=== PATIENT | female | born 2005 | race Caucasian/White ===

== ENCOUNTER 2025-03-20 08:59 | Observation (INO) ==
--- NOTE | 2025-03-20 09:09 | Emergency Department Note ---
History of Present Illness General Chief complaint: Anxiety Stated complaint: ANXIETY/THROWING UP Time Seen by Provider: 03/20/25 09:09 History of Present Illness Maximum Pain Intensity: 7 This is a 19-year-old female who presents to the emergency department via private vehicle with complaints of "anxiety". Patient has a history of anxiety. She was on Lexapro about a year ago but notes she was inconsistent with taking the medication and noticed very little difference. She currently is not taking any medication. Over the past 2 to 3 days she notes worsening anxiety which she attributes secondary to moving back to college here at [employer] [facility]. She denies any SI or HI. She did follow-up with [facility] and was prescribed hydroxyzine but has not taken that noting the nausea that she has this morning. She also notes generalized abdominal pain. She states that the nausea and abdominal pain is consistent with her anxiety. The patient denies any pertinent past medical history. She notes history of foot surgery. No known drug allergies. She notes mild vomiting, mostly nausea. She denies any alcohol use. No drug use. She notes that she does smoke and vape. She was referred by [facility] for fluids and potential initiation of medication. Home Medications Medication Instructions Recorded Confirmed Type hydroxyzine HCl 25 mg tablet 25 mg PO DAILY PRN Anxiety 03/20/25 03/20/25 History Allergies Allergy/AdvReac Type Severity Reaction Status Date / Time No Known Allergies Allergy Unverified 03/20/25 10:39 Past Med/Surg History Problem List (Updated 03/20/25 @ 14:53 by Fran Adkins PA-C) Nausea & vomiting (Acute) Anxiety (Acute) Social History Smoking Status: Current every day smoker Tobacco Type: Cigarettes and E-cigarettes / Vaping Preferred Language: Khmer Feels Safe at Home: Yes Review of Systems A total of 10 systems reviewed and were otherwise negative Physical Exam Vital Signs Vital Signs - 24 hr 03/20/25 09:03 03/20/25 09:33 03/20/25 09:33 Temperature 36 C L Temperature Source Temporal Artery Scan Pulse Rate 64 Pulse Rate [Apical] Pulse Rhythm [Apical] Respiratory Rate 18 Respiratory Effort / Characteristics Non-Labored Respiratory Depth Normal Respiratory Pattern Regular Blood Pressure 111/67 Blood Pressure [Right Arm] Blood Pressure Mean 81 Blood Pressure Mean [Right Arm] Blood Pressure Position [Right Arm] Pulse Oximetry 100 100 100 Oxygen Delivery Method Room Air Room Air Room Air Sepsis Recent Fever Within 48 Hours No Sepsis New/Unexplained Change in Mental Status N/A Sepsis Action Taken by Nursing No Action Required 03/20/25 10:46 03/20/25 11:00 03/20/25 13:19 Temperature Temperature Source Pulse Rate 93 H Pulse Rate [Apical] 64 67 Pulse Rhythm [Apical] Regular Respiratory Rate 20 16 Respiratory Effort / Characteristics Non-Labored Spontaneous Non-Labored Spontaneous Respiratory Depth Normal Normal Respiratory Pattern Blood Pressure Blood Pressure [Right Arm] 119/77 120/76 Blood Pressure Mean Blood Pressure Mean [Right Arm] 91 90 Blood Pressure Position [Right Arm] Semi-fowlers Pulse Oximetry 100 95 Oxygen Delivery Method Room Air Room Air Sepsis Recent Fever Within 48 Hours Sepsis New/Unexplained Change in Mental Status Sepsis Action Taken by Nursing VITAL SIGNS - Vital signs and nursing notes were reviewed. Stable and afebrile. GENERAL -19-year-old female appearing her stated age who is in no acute distress. Communicates well with provider and answers questions appropriately. SKIN - Without rashes. No meningeal or petechial rash. HEAD - NC/AT. EYES - PERRL with EOMI bilaterally. Sclera anicteric. EARS - No deformities of external structures noted on gross examination bilaterally. NOSE - Midline and without cyanosis. No epistaxis or purulent drainage noted. MOUTH/OROPHARYNX - Without perioral cyanosis. NECK - Neck with FROM. No nuchal rigidity. LUNGS - CTA CARDIAC - RRR ABDOMEN - Abdominal contour normal without pulsations or visible masses. BS normoactive all four quadrants. No tenderness, palpable masses, hepatosplenomegaly, or ascites noted. EXTREMITIES - No clubbing or peripheral cyanosis. +5/5 strength noted in UE/LE bilaterally. NEUROLOGIC - Cranial nerves II through XII grossly intact. PSYCH - alert, oriented and pleasant on exam Course Administered Medications Discontinued Medications Sodium Chloride (Nss) 1,000 mls @ 999 mls/hr IV .Q1H1M ONE Stop: 03/20/25 10:15 Last Infusion: 03/20/25 12:03 Dose: Infused Documented By: Admin: 03/20/25 09:24 Dose: 999 mls/hr Documented By: RELL Potassium Chloride (K [place] / Wtr) 10 meq in 100 mls @ 100 mls/hr IV ONE ONE Stop: 03/20/25 11:26 Last Infusion: 03/20/25 12:02 Dose: Infused Documented By: Admin: 03/20/25 10:57 Dose: 100 mls/hr Documented By: CLARISSA Sodium Chloride (Nss) 500 mls @ 500 mls/hr IV .Q1H ONE Stop: 03/20/25 11:52 Last Infusion: 03/20/25 12:03 Dose: Infused Documented By: Admin: 03/20/25 10:57 Dose: 500 mls/hr Documented By: CLARISSA Lorazepam (Lorazepam 1 Mg/1 Ml Syr Ed Inj Use) 0.25 mg IV ONE STA Stop: 03/20/25 10:28 Last Admin: 03/20/25 10:56 Dose: 0.25 mg Documented By: CLARISSA Metoclopramide HCl (Metoclopramide Hcl Inj 5 Mg/Ml 2 Ml Vial) 5 mg IV ONE ONE Stop: 03/20/25 13:07 Last Admin: 03/20/25 13:09 Dose: 5 mg Documented By: MAIDA Ondansetron HCl (Ondansetron Inj 2 Mg/Ml 2 Ml Vial) 4 mg IV NOW STA Stop: 03/20/25 09:16 Last Admin: 03/20/25 09:29 Dose: 4 mg Documented By: RELL Medical Decision Making Laboratory Data 03/20/25 09:23 03/20/25 09:23 Lab Results 03/20/25 03/20/25 Range/Units 09:23 10:34 WBC 8.94 (4.8-10.8) K/ul RBC 4.36 (4.20-5.40) M/uL Hgb 13.7 (12.0-16.0) g/dl Hct 38.9 (37.0-47.0) % MCV 89.2 (80.0-100.0) fL MCH 31.4 (25.0-34.0) pg MCHC 35.2 (32.0-36.0) g/dL RDW Std Deviation 43.4 (36.4-46.3) fL RDW Coeff of Gregg 13.1 (11.5-14.5) % Plt Count 226 (130-400) K/uL MPV 10.3 (9.4-12.4) fL Immature Gran % (Auto) 0.2 % Neut % (Auto) 69.1 % Lymph % (Auto) 25.2 % [place] % (Auto) 4.8 % Eos % (Auto) 0.3 % Baso % (Auto) 0.4 % Neut # (Auto) 6.17 (1.40-6.50) K/uL Lymph # (Auto) 2.25 (1.20-3.40) K/uL [place] # (Auto) 0.43 (0.11-0.59) K/uL Eos # (Auto) 0.03 (0.00-0.50) K/uL Baso # (Auto) 0.04 (0.00-0.20) K/uL Immature Gran # (Auto) 0.02 (0.01-0.20) K/uL Sodium 138 (136-145) mmol/L Potassium 3.1 L (3.5-5.1) mmol/L Chloride 105 (98-107) mmol/L Carbon Dioxide 21 (21-32) mmol/L Anion Gap 12 H (3-11) BUN 11 (6-23) mg/dl Creatinine 0.93 (0.6-1.2) mg/dl Est Cr Clr Drug Dosing 84.0 ml/min eGFR 90.80 BUN/Creatinine Ratio 11.8 (10-20) Glucose 99 (70-99(Fasting)) mg/dl Calcium 9.8 (8.6-10.3) mg/dl Magnesium 2.2 (1.7-2.4) mg/dl Total Bilirubin 1.2 H (0.2-1.0) mg/dl AST 15 (13-39) U/L ALT 9 (7-52) U/L Alkaline Phosphatase 69 (34-104) U/L Total Protein 7.9 (6.0-8.3) gm/dl Albumin 4.5 (3.4-5.0) gm/dl Globulin 3.4 (2.5-4.0) gm/dl Albumin/Globulin Ratio 1.3 (0.9-2) TSH 0.731 (0.300-4.500) uIu/ml HCG, Qual Negative (Negative) Urine Color Yellow Urine Appearance Clear (Clear) Urine pH 6.5 (4.5-7.5) Ur Specific [place] 1.009 (1.000-1.030) Urine Protein Negative (Negative) Urine Glucose (UA) Negative (Negative) Urine Ketones 1+ H (Negative) Urine Blood Negative (Negative) Urine Nitrite Negative (Negative) Urine Bilirubin Negative (Negative) Urine Urobilinogen Negative (Negative) Ur Leukocyte Esterase Negative (Negative) Urine Comment MDM Narrative Patient was seen and evaluated as above in room B03b. Review was performed of triage nursing notes and vital signs. I did review pertinent previous visits and patient history. After obtaining a thorough history and physical examination the above work up was performed. EKG was obtained. Per my interpretation this reveals sinus bradycardia at a rate of 51 bpm. QTc 400. QRS 76. No ST elevation on this rhythm tracing Options of care were discussed with the patient. IV access was established. Labs were drawn. There is no leukocytosis or concerning anemia. Hypokalemia 3.1 which we repleted intravenously. No evidence of kidney or liver failure although will note T. bili 1.2, similar to previous. hCG negative. Urinalysis does not suggest infection. She was medicated here with IV fluids. I had a thorough discussion with the patient regarding benefit versus risk of CT scan of the abdomen/pelvis. The patient feels that her discomfort is consistent with her previous anxiety and does not wish to undergo imaging. Patient aware of the reasoning behind considering imaging. I did order Ativan which was minimally helpful. P.o. fluid trial initiated and patient did vomit. IV Reglan ordered. At this time consideration was made for further evaluation and management in the inpatient setting. Case discussed with the hospitalist service. Please refer to further documentation regarding her stay. In the evaluation and treatment of this patient the following differential diagnoses were entertained: Arrhythmia, electrolyte disturbance, anxiety, UTI, pyelonephritis, among others Impression & Plan Nausea & vomiting, Anxiety Discharge Plan Visit Data Chief Complaint: Anxiety Stated Complaint: ANXIETY/THROWING UP ED Provider: Ibeth Ambriz ED Midlevel Provider: Fran Adkins Discharge Problem: Nausea & vomiting, Anxiety Patient Disposition: Admitted As Inpatient Condition: Good Discharge Instructions Interventions: ED Discharge Assessment Last Done: 03/20/25 14:39
[2025-03-20] MEDS: SODIUM CHLORIDE 0.9% 1,000 ML IV ONE (09:24)
[2025-03-20] MEDS: ONDANSETRON INJ 2 MG/ML 2 ML VIAL IV STA (09:29)
[2025-03-20 09:53] LABS: Hematocrit (blood only) 38.9 % (37.0-47.0); Hemoglobin 13.7 g/dl (12.0-16.0); Immature Granulocytes # (auto) 0.02 K/uL (0.01-0.20); Immature Granulocytes % (auto) 0.2 %; Mean Corpuscular Hemoglobin 31.4 pg (25.0-34.0); Mean Corpuscular Volume 89.2 fL (80.0-100.0); Platelet Count 226 K/uL (130-400); RDW Standard Deviation 43.4 fL (36.4-46.3); Red Blood Count 4.36 M/uL (4.20-5.40); White Blood Count 8.94 K/ul (4.8-10.8)
[2025-03-20 10:12] LABS: Alanine Aminotransferase 9.0 U/L (7-52); Albumin Globulin Ratio 1.3 (0.9-2); Alkaline Phosphatase 69.0 U/L (34-104); Anion Gap 12.0 (3-11); Bilirubin,Total 1.2 mg/dl (0.2-1.0); Blood Urea Nitrogen 11.0 mg/dl (6-23); Calcium 9.8 mg/dl (8.6-10.3); Carbon Dioxide 21.0 mmol/L (21-32); Chloride 105.0 mmol/L (98-107); Creatinine Clr Calc Pharmacy 84.0 ml/min; Globulin 3.4 gm/dl (2.5-4.0); Glucose 99.0 mg/dl (70-99(Fasting)); Potassium 3.1 mmol/L (3.5-5.1); Sodium 138.0 mmol/L (136-145); Total Protein 7.9 gm/dl (6.0-8.3)
[2025-03-20 10:26] LABS: Thyroid Stimulating Hormone 0.731 uIu/ml (0.300-4.500)
[2025-03-20 10:35] LABS: Pregnancy Test, Serum Negative (Negative)
[2025-03-20] MEDS: LORazepam 1 MG/1 ML SYR ED Inj Use IV STA (10:56)
[2025-03-20] MEDS: POTASSIUM CHLORIDE / WTR 10 MEQ/100 ML PLCT IV ONE (10:57)
[2025-03-20] MEDS: SODIUM CHLORIDE 0.9% 500 ML IV ONE (10:57)
[2025-03-20 10:59] LABS: Appearance Urine Clear (Clear); Glucose Urine UA Negative (Negative)
[2025-03-20] MEDS: METOCLOPRAMIDE HCL INJ 5 MG/ML 2 ML VIAL IV ONE (13:09)
--- NOTE | 2025-03-20 13:28 | History & Physical Report ---
Date of Service March 20, 2025 Assessment & Plan (1) Anxiety: (2) Nausea & vomiting: Plan 19-year-old female anxiety smoking /Vaping who was referred by [facility] with complaints of severe anxiety. Endorses associated generalized abdominal cramping nausea and vomiting. She states this is normal for her whenever she feels severely anxious and it resolves once her anxiety subsides. She feels moving back to [place] has provoked her anxiety attack. She is declining a CT scan in the ED for this reason. Also endorses diarrhea however states this is chronic and unchanged. Also endorses nonvertiginous lightheadedness feels this is because she has not eaten. No fevers chills blood in stool shortness of breath chest pain recent illness sick contacts travel or suspicious foods. She was on lexapro in the past and admits to not always being compliant as she felt it did not work very well. Currently Not on any medications aside from hydroxyzine recently prescribed at [facility] but she has not taken this secondary to her nausea and vomiting. Denies SI HI delusions or hallucinations. Denies EtOH or illicit drug use. She also mentions severe menorrhagia recently no other symptoms. Severe anxiety attack Supportive care Hydroxyzine And Ativan as needed Psychiatry consultation. May consider placing back on SSRI. Will likely benefit from being established with psychiatrist here after having moved back CM consulted to evaluate for any socioeconomic challenges Nausea vomiting abdominal pain reportedly attributable to anxiety Declining CT scan at this time. Reassess based on clinical course. test negative. TFTs WNL. UA unrevealing. Supportive care Antiemetics IV fluids Diet as tolerated UDS Hypokalemia Replete as needed Monitor magnesium Smoking/vaping Cessation counseling Recent severe menorrhagia Considering above complaints, will consult gynecology. 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 Endorses associated abdominal cramping nausea and vomiting. She states this is normal for her whenever she feels severely anxious and it resolves once her anxiety subsides. She feels moving back to [place] has provoked her anxiety attack. She is declining a CT scan in the ED for this reason. No fevers chills diarrhea blood in stool lightheadedness shortness of breath sick contacts travel or suspicious foods. She was on lexapro in the past and admits to not always being compliant as she felt it did not work very well. Currently Not on any medications aside from hydroxyzine recently prescribed at [facility] but she has not taken this secondary to her nausea and vomiting. Denies SI HI delusions or hallucinations. Denies EtOH or illicit drug use Allergies Allergy/AdvReac Type Severity Reaction Status Date / Time No Known Allergies Allergy Unverified 03/20/25 10:39 Home Medications Medication Instructions Recorded Confirmed Type hydroxyzine HCl 25 mg tablet 25 mg PO DAILY PRN Anxiety 03/20/25 03/20/25 History Past Med/Surg History Problem List (Updated 03/20/25 @ 13:53 by Sommer Olivarez MD) Nausea & vomiting Anxiety Social History Smoking Status: Current every day smoker Tobacco Type: Cigarettes and E-cigarettes / Vaping Preferred Language: Welsh Feels Safe at Home: Yes Review of Systems Review of Systems: Negative except as in HPI Physical Exam Physical Exam: awake alert NAD SKIN - Without rashes. No meningeal or petechial rash. HEAD - NC/AT. EYES - PERRL with EOMI bilaterally. Sclera anicteric. EARS - No deformities of external structures noted on gross examination bilaterally. NOSE - Midline and without cyanosis. No epistaxis or purulent drainage noted. MOUTH/OROPHARYNX - Without perioral cyanosis. NECK - Neck with FROM. No nuchal rigidity. LUNGS - CTA CARDIAC - RRR ABDOMEN - Abdominal contour normal without pulsations or visible masses. BS normoactive all four quadrants. No tenderness, palpable masses, hepatosplenomegaly, or ascites noted. EXTREMITIES - No clubbing or peripheral cyanosis. +5/5 strength noted in UE/LE bilaterally. NEUROLOGIC - Cranial nerves II through XII grossly intact. PSYCH - alert, oriented and pleasant on exam Results & Data Results & Data Vital Signs (Past 12 Hours) Vital Signs Temp Pulse Pulse Resp BP BP Pulse Ox 03/20/25 13:19 67 16 120/76 95 03/20/25 11:00 64 20 119/77 100 03/20/25 10:46 93 H 03/20/25 09:33 100 03/20/25 09:33 100 03/20/25 09:03 36 C L 64 18 111/67 100 O2 Del Method 03/20/25 13:19 Room Air 03/20/25 11:00 Room Air 03/20/25 10:46 03/20/25 09:33 Room Air 03/20/25 09:33 Room Air 03/20/25 09:03 Room Air PG Care Time/CCT Total # of Minutes Spent Total Time Spent with Patient: Total time spent is greater than 50% in coordination of care (as documented) at patient's floor/unit and/or counseling patient: Coding Level of Care Code 79445 INT INP/OBS CARE 2/55MIN Diagnoses Anxiety F41.9 Nausea & vomiting R11.2
[2025-03-20 14:28] LABS: Magnesium 2.2 mg/dl (1.7-2.4)
[2025-03-20] MEDS ORDERED: ACETAMINOPHEN 325 MG TAB PO PRN (14:46)
[2025-03-20] MEDS: LACTATED RINGER'S 1,000 ML IV SCH (15:18)
[2025-03-20 15:19] LABS: Hematocrit (blood only) 39.2 % (37.0-47.0); Hemoglobin 13.4 g/dl (12.0-16.0); Mean Corpuscular Hemoglobin 30.7 pg (25.0-34.0); Mean Corpuscular Volume 89.9 fL (80.0-100.0); Platelet Count 207 K/uL (130-400); RDW Standard Deviation 43.2 fL (36.4-46.3); Red Blood Count 4.36 M/uL (4.20-5.40); White Blood Count 6.46 K/ul (4.8-10.8)
[2025-03-20] MEDS: POTASSIUM CHLORIDE / WTR 10 MEQ/100 ML PLCT IV SCH (15:19)
[2025-03-20 15:32] LABS: Amphetamines+Metham, Urine Neg (Neg); MDMA (Ecstacy), Urine Neg (Neg); Marijuana, Urine Pos (Neg)
[2025-03-20 15:37] LABS: Alanine Aminotransferase 8.0 U/L (7-52); Albumin Globulin Ratio 1.3 (0.9-2); Alkaline Phosphatase 63.0 U/L (34-104); Anion Gap 9.0 (3-11); Bilirubin,Total 1.0 mg/dl (0.2-1.0); Blood Urea Nitrogen 8.0 mg/dl (6-23); Calcium 9.0 mg/dl (8.6-10.3); Carbon Dioxide 19.0 mmol/L (21-32); Chloride 112.0 mmol/L (98-107); Creatinine Clr Calc Pharmacy 102.8 ml/min; Globulin 3.0 gm/dl (2.5-4.0); Glucose 94.0 mg/dl (70-99(Fasting)); Potassium 3.5 mmol/L (3.5-5.1); Sodium 140.0 mmol/L (136-145); Total Protein 7.0 gm/dl (6.0-8.3)
[2025-03-20] MEDS: hydrOXYzine HCL IM SOLN 50 MG/ML 1 ML VIAL IM PRN (17:12)
--- NOTE | 2025-03-20 21:07 | Ultrasound Report ---
Exam(s): US PELVIS EXAM: US Pelvis Transabdominal and Transvaginal, Complete CLINICAL HISTORY: Reason for exam: menorrhagia. TECHNIQUE: Real-time complete transabdominal and transvaginal pelvic ultrasound with image documentation. Transvaginal imaging was used for better evaluation of the endometrium and adnexa. COMPARISON: None FINDINGS: Uterus: Retroverted uterus measures 5.3 x 2.7 by 3.5 cm. No focal myometrial lesion. Endometrium measures 1.6 mm. Right ovary: Measures 3.4 x 2.0 x 2.3 cm. Multiple follicles. Normal color Doppler flow to the right ovary. Left ovary: Measures 3.2 x 2.0 x 2.7 cm. Multiple follicles. Normal color Doppler flow to the left ovary. Other: No free fluid. No adnexal mass. IMPRESSION: Multiple follicles in the ovaries. No acute abnormality. Electronically signed by: Lewis Lares M.D. 03/20/25 21:05 PM
[2025-03-20 21:29] LABS: Anion Gap 10.0 (3-11); Blood Urea Nitrogen 6.0 mg/dl (6-23); Calcium 9.4 mg/dl (8.6-10.3); Carbon Dioxide 20.0 mmol/L (21-32); Chloride 110.0 mmol/L (98-107); Creatinine Clr Calc Pharmacy 105.6 ml/min; Glucose 84.0 mg/dl (70-99(Fasting)); Potassium 3.9 mmol/L (3.5-5.1); Sodium 140.0 mmol/L (136-145)
--- NOTE | 2025-03-20 21:45 | OB/GYN Consultation ---
Date of Consultation March 20, 2025 Assessment & Plan (1) Breakthrough bleeding on Nexplanon: We discussed that among the most common undesired side effects of Nexplanon is an increase in the number of bleeding days with a low volume of bleeding. Although the patient describes her bleeding as heavy, objectively it is within normal limits both based on how many tampons she requires and based on her Hgb of 13.7 on admission / 13.4 after rehydration. Her bleeding pattern fits the typical experience seen in Nexplanon users. There are no concerning findings on her ultrasound to suggest a structural cause of AUB. Thyroid function is normal, is not present, and there is no indication of other rare causes of AUB. I suspect Alicia has the common but undesired bleeding pattern that is often produced in Nexplanon users. She may be happier with a change of contraceptive method for quality of life improvement. However we cannot remove her Nexplanon at the bedside in the hospital setting. There is no urgent gynecologic condition at this time that requires a change in her management prior to discharge home. She is encouraged to follow up as an outpatient for discussion of a new contraceptive method that she might find more acceptable. This can be done locally by [place] [facility] [place] [facility], or can appropriately wait until she returns home to [place]; it is her choice. (2) Abnormal uterine bleeding (AUB): History of Present Illness Reason for Consultation: menorrhagia Attending Physician: Sommer Olivarez MD History of Present Illness 19yo (TAB x1 via D&E in [place] in 2021) currently admitted to hospitalist service for anxiety and nausea/emesis. A [employer] consultation was req uested because the patient c/o irregular and heavy menstrual bleeding, and because she noted that she has no [employer] appointment scheduled to address this until she returns to [place] for . She currently has light vaginal bleeding. Her LMP began 10 days ago. She complains that she has up to 14 days per month when there is at least some bleeding. The 14 bleeding days are not always continuous so some months she has what seems like breakthrough or unscheduled bleeding days. Her heaviest bleeding days involve using a tampon about every 4 hours. Does not c/o excessive cramping. Not presently experiencing lightheadness or presyncope. She prefers male sexual partners, most recently active 3 months ago. She has nexplanon for contraception which was placed approximately 1.5 years ago in [place] per the patient. She does not have any currently scheduled appointments with the [facility] local [employer] group, nor with any other local group. 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 Allergies Allergy/AdvReac Type Severity Reaction Status Date / Time No Known Allergies Allergy Unverified 03/20/25 10:39 Home Medications Medication Instructions Recorded Confirmed Type hydroxyzine HCl 25 mg tablet 25 mg PO DAILY PRN Anxiety 03/20/25 03/20/25 History Patient History Surgical History (Updated 03/20/25 @ 21:30 by Dee Montoya MD) Termination of (fetus) D&E 2021 History of removal of skin mole on foot Social History Smoking Status: Current every day smoker Tobacco Type: E-cigarettes / Vaping Hx Alcohol Use: Yes Hx Substance Use: Yes Preferred Language: Irish Communication Ability: Effective Change Manager Required: No Beliefs That Will Affect Care: None Current Living Situation: Parent Current Living Situation Comment: patient currently lives in student apartment, normally lives with mom Other Information That Helps Us Care for You: No Feels Safe at Home: Yes Safety Concerns: Feels Safe At This Time Assistive Devices: None Physical Exam Physical Exam: Lying in bed R lateral, watching TV on her laptop on the bedside table. Fluent, energetic speech. Moving normally in bed to reposition herself, close laptop, and converse with physician. Normal habitus Constitutional: NAD, well nourished Neck: supple, no thyroid enlargement visible Respiratory: no resp distress, speech fluid Chest (Breasts): Additional Comments: clothed observation appears to have normal development Neurologic: No grossly visible deficits. Psychiatric: Normal affect Genitourinary: Ultrasound of the pelvis reviewed: Uterus normal Ovaries normal bilaterally with follicles evident Pelvic exam deferred at this time, unlikely to be revealing beyond the US findings. Results & Data Vital Signs (Past 12 Hours) Vital Signs Temp Pulse Pulse Pulse Resp BP Pulse Ox 03/20/25 19:42 97.9 F 51 L 18 112/65 99 03/20/25 15:20 51 L 03/20/25 14:46 03/20/25 14:46 98.1 F 52 L 20 108/68 100 03/20/25 14:39 03/20/25 13:19 67 16 120/76 95 03/20/25 11:00 64 20 119/77 100 03/20/25 10:46 93 H 03/20/25 09:33 100 03/20/25 09:33 100 Pulse Ox O2 Del Method O2 Del Method 03/20/25 19:42 Room Air 03/20/25 15:20 03/20/25 14:46 100 Room Air 03/20/25 14:46 Room Air 03/20/25 14:39 Room Air 03/20/25 13:19 Room Air 03/20/25 11:00 Room Air 03/20/25 10:46 03/20/25 09:33 Room Air 03/20/25 09:33 Room Air Laboratory Results Laboratory Results - last 24 hr 03/20/25 03/20/25 03/20/25 09:23 10:34 14:58 WBC 8.94 6.46 RBC 4.36 4.36 Hgb 13.7 13.4 Hct 38.9 39.2 MCV 89.2 89.9 MCH 31.4 30.7 MCHC 35.2 34.2 RDW Std Deviation 43.4 43.2 RDW Coeff of Gregg 13.1 13.2 Plt Count 226 207 MPV 10.3 10.2 Immature Gran % (Auto) 0.2 Neut % (Auto) 69.1 Lymph % (Auto) 25.2 [place] % (Auto) 4.8 Eos % (Auto) 0.3 Baso % (Auto) 0.4 Neut # (Auto) 6.17 Lymph # (Auto) 2.25 [place] # (Auto) 0.43 Eos # (Auto) 0.03 Baso # (Auto) 0.04 Immature Gran # (Auto) 0.02 Sodium 138 140 Potassium 3.1 L 3.5 Chloride 105 112 H Carbon Dioxide 21 19 L Anion Gap 12 H 9 BUN 11 8 Creatinine 0.93 0.76 Est Cr Clr Drug Dosing 84.0 102.8 eGFR 90.80 115.69 BUN/Creatinine Ratio 11.8 10.5 Glucose 99 94 Calcium 9.8 9.0 Magnesium 2.2 Total Bilirubin 1.2 H 1.0 AST 15 13 ALT 9 8 Alkaline Phosphatase 69 63 Total Protein 7.9 7.0 Albumin 4.5 4.0 Globulin 3.4 3.0 Albumin/Globulin Ratio 1.3 1.3 TSH 0.731 HCG, Qual Negative Urine Color Yellow Urine Appearance Clear Urine pH 6.5 Ur Specific [place] 1.009 Urine Protein Negative Urine Glucose (UA) Negative Urine Ketones 1+ H Urine Blood Negative Urine Nitrite Negative Urine Bilirubin Negative Urine Urobilinogen Negative Ur Leukocyte Esterase Negative Urine Comment Urine Opiates Screen Neg Ur Methadone, Qual Neg Urine Fentanyl Screen Neg Urine Barbiturates Neg Ur Phencyclidine (PCP) Neg U Amphetamin/Meth Scrn Neg MDMA (Ecstasy) Screen Neg U Benzodiazepines Scrn Neg Ur Cocaine Metabolite Neg U Marijuana (THC) Screen Pos H U Marijuana THC Carboxy Pending Drug Screen Comment Pending 03/20/25 20:42 WBC RBC Hgb Hct MCV MCH MCHC RDW Std Deviation RDW Coeff of Gregg Plt Count MPV Immature Gran % (Auto) Neut % (Auto) Lymph % (Auto) [place] % (Auto) Eos % (Auto) Baso % (Auto) Neut # (Auto) Lymph # (Auto) [place] # (Auto) Eos # (Auto) Baso # (Auto) Immature Gran # (Auto) Sodium 140 Potassium 3.9 Chloride 110 H Carbon Dioxide 20 L Anion Gap 10 BUN 6 Creatinine 0.74 Est Cr Clr Drug Dosing 105.6 eGFR 119.45 BUN/Creatinine Ratio 8.1 L Glucose 84 Calcium 9.4 Magnesium Total Bilirubin AST ALT Alkaline Phosphatase Total Protein Albumin Globulin Albumin/Globulin Ratio TSH HCG, Qual Urine Color Urine Appearance Urine pH Ur Specific [place] Urine Protein Urine Glucose (UA) Urine Ketones Urine Blood Urine Nitrite Urine Bilirubin Urine Urobilinogen Ur Leukocyte Esterase Urine Comment Urine Opiates Screen Ur Methadone, Qual Urine Fentanyl Screen Urine Barbiturates Ur Phencyclidine (PCP) U Amphetamin/Meth Scrn MDMA (Ecstasy) Screen U Benzodiazepines Scrn Ur Cocaine Metabolite U Marijuana (THC) Screen U Marijuana THC Carboxy Drug Screen Comment
--- NOTE | 2025-03-20 22:35 | Electrocardiogram Report ---
Test Reason : Blood Pressure : */* mmHG Vent. Rate : 51 BPM Atrial Rate : 51 BPM P-R Int : 116 ms QRS Dur : 76 ms QT Int : 434 ms P-R-T Axes : 59 76 25 degrees QTcB Int : 400 ms Sinus bradycardia Otherwise normal ECG When compared with ECG of 21-Jan-2024 17:16, No significant change was found Confirmed by Jatin Meraz ([id number]) on 03/20/2025 10:35:41 PM Referred By: REFERRED SELF Confirmed By: Jatin Meraz
[2025-03-21 07:08] LABS: Hematocrit (blood only) 35.8 % (37.0-47.0); Hemoglobin 12.0 g/dl (12.0-16.0); Mean Corpuscular Hemoglobin 30.6 pg (25.0-34.0); Mean Corpuscular Volume 91.3 fL (80.0-100.0); Platelet Count 174 K/uL (130-400); RDW Standard Deviation 44.5 fL (36.4-46.3); Red Blood Count 3.92 M/uL (4.20-5.40); White Blood Count 5.09 K/ul (4.8-10.8)
[2025-03-21 07:36] LABS: Alanine Aminotransferase 8.0 U/L (7-52); Albumin Globulin Ratio 1.5 (0.9-2); Alkaline Phosphatase 52.0 U/L (34-104); Anion Gap 6.0 (3-11); Bilirubin,Total 1.0 mg/dl (0.2-1.0); Blood Urea Nitrogen 5.0 mg/dl (6-23); Calcium 8.6 mg/dl (8.6-10.3); Carbon Dioxide 23.0 mmol/L (21-32); Chloride 111.0 mmol/L (98-107); Creatinine Clr Calc Pharmacy 107.0 ml/min; Globulin 2.4 gm/dl (2.5-4.0); Glucose 90.0 mg/dl (70-99(Fasting)); Magnesium 2.0 mg/dl (1.7-2.4); Potassium 3.7 mmol/L (3.5-5.1); Sodium 140.0 mmol/L (136-145); Total Protein 5.9 gm/dl (6.0-8.3)
[2025-03-21 07:45] VITALS: TEMP 98.4
[2025-03-21] MEDS: ONDANSETRON INJ 2 MG/ML 2 ML VIAL IV PRN (08:18)
--- NOTE | 2025-03-21 10:28 | Hospitalist Progress Note ---
Date of Service March 21, 2025 Assessment & Plan (1) Anxiety: (2) Nausea & vomiting: Plan 19-year-old female anxiety smoking /Vaping who was referred by [facility] with complaints of severe anxiety. Endorses associated generalized abdominal cramping nausea and vomiting. She states this is normal for her whenever she feels severely anxious and it resolves once her anxiety subsides. She feels moving back to [place] has provoked her anxiety attack. She is declining a CT scan in the ED for this reason. Also endorses diarrhea however states this is chronic and unchanged. Also endorses nonvertiginous lightheadedness feels this is because she has not eaten. No fevers chills blood in stool shortness of breath chest pain recent illness sick contacts travel or suspicious foods. She was on lexapro in the past and admits to not always being compliant as she felt it did not work very well. Currently Not on any medications aside from hydroxyzine recently prescribed at [facility] but she has not taken this secondary to her nausea and vomiting. Denies SI HI delusions or hallucinations. Denies EtOH or illicit drug use. She also mentions severe menorrhagia recently no other symptoms. Severe anxiety attack Supportive care Hydroxyzine And Ativan as needed Psychiatry consultation. May consider placing back on SSRI. Will likely benefit from being established with psychiatrist here after having moved back CM consulted to evaluate for any socioeconomic challenges Nausea vomiting abdominal pain reportedly attributable to anxiety Declining CT scan at this time. Reassess based on clinical course. test negative. TFTs WNL. UA unrevealing. Supportive care Antiemetics IV fluids Diet as tolerated UDS Positive marijuana. Hyperemesis due to marijuana? Cessation counseling Hypokalemia Replete as needed Monitor magnesium Smoking/vaping Cessation counseling Recent severe menorrhagia Considering above complaints, will consult gynecology. She does not have an appointment with her facilities engineering manager until Thanksgiving Pelvic ultrasound Unrevealing gynecology recommends outpatient follow-up They feel this is secondary to control DVT prophylaxis SCDs and ambulation Full code Disposition discharge in 1 to 2 days Admission and Anticipated Discharge Date Admission Date: March 20, 2025 Subjective Still with nausea and abdominal pain unchanged. She still largely attributes this to her anxiety. has not vomited overnight but feels as if she is going to vomit soon. no f/c lightheadedness or other symptoms. counseled on marijuana cessation/minimization explained this may play a role in presenting symptoms Review of Systems Review of Systems: Negative except as in HPI Physical Exam Physical Exam: awake alert NAD SKIN - Without rashes. No meningeal or petechial rash. HEAD - NC/AT. EYES - PERRL with EOMI bilaterally. Sclera anicteric. EARS - No deformities of external structures noted on gross examination bilaterally. NOSE - Midline and without cyanosis. No epistaxis or purulent drainage noted. MOUTH/OROPHARYNX - Without perioral cyanosis. NECK - Neck with FROM. No nuchal rigidity. LUNGS - CTA CARDIAC - RRR ABDOMEN - Abdominal contour normal without pulsations or visible masses. BS normoactive all four quadrants. No tenderness, palpable masses, hepatosplenomegaly, or ascites noted. EXTREMITIES - No clubbing or peripheral cyanosis. +5/5 strength noted in UE/LE bilaterally. NEUROLOGIC - Cranial nerves II through XII grossly intact. PSYCH - alert, oriented and pleasant on exam Results & Data Results & Data Vital Signs (Past 12 Hours) Vital Signs Temp Pulse Pulse Resp BP Pulse Ox O2 Del Method 03/21/25 09:43 Room Air 03/21/25 07:44 36.9 C 76 20 100/53 L 98 Room Air 03/21/25 05:56 54 L 03/21/25 02:17 36.4 C L 52 L 18 98/71 L 96 Room Air 03/20/25 22:40 36.8 C 70 18 113/69 97 Room Air PG Care Time/CCT Total # of Minutes Spent Total Time Spent with Patient: Total time spent is greater than 50% in coordination of care (as documented) at patient's floor/unit and/or counseling patient: Coding Level of Care Code 78430 SUB INP/OBS CARE 2/35MIN Diagnoses Anxiety F41.9 Nausea & vomiting R11.2
[2025-03-21 11:08] VITALS: BP 117/68; RESP 16; O2SAT 99
--- NOTE | 2025-03-21 13:55 | Discharge Summary ---
Discharge Summary Date of Service March 21, 2025 Psych liaison reached out to me to discuss the case cleared for discharge from their standpoint. She tells me psychiatrist is requesting for consultation to be canceled as there is no need for them to see the patient in the hospital and can be established outpatient. Psych liaison has gone over all recommendations with the patient and relate to me to send the patient home on hydroxyzine. The patient has an appointment scheduled for this afternoon with behavioral clinic. She understands importance of close follow-up and strict return precautions were discussed extensively. RN tells me that Via secure chat the patient feels much better No longer nauseous. Has had no further vomiting since yesterday. ate half of her lunch and Is feeling much better eager for discharge stating she has "a lot of things to do". She is now essentially returned to her baseline asymptomatic and eager to go home Principal Dx & Hospital Course #1 = Principal Diagnosis (1) Anxiety: (2) Nausea & vomiting: Plan 19-year-old female anxiety smoking /Vaping who was referred by [facility] with complaints of severe anxiety. Endorses associated generalized abdominal cramping nausea and vomiting. She states this is normal for her whenever she feels severely anxious and it resolves once her anxiety subsides. She feels moving back to [place] has provoked her anxiety attack. She is declining a CT scan in the ED for this reason. Also endorses diarrhea however states this is chronic and unchanged. Also endorses nonvertiginous lightheadedness feels this is because she has not eaten. No fevers chills blood in stool shortness of breath chest pain recent illness sick contacts travel or suspicious foods. She was on lexapro in the past and admits to not always being compliant as she felt it did not work very well. Currently Not on any medications aside from hydroxyzine recently prescribed at [facility] but she has not taken this secondary to her nausea and vomiting. Denies SI HI delusions or hallucinations. Denies EtOH or illicit drug use. She also mentions severe menorrhagia recently no other symptoms. Severe anxiety attack Supportive care Hydroxyzine And Ativan as needed Psychiatry consultation. May consider placing back on SSRI. Will likely benefit from being established with psychiatrist here after having moved back CM consulted to evaluate for any socioeconomic challenges Psych liason/psych establishing outpatient follow-up and recommends continuing hydroxyzine Nausea vomiting abdominal pain reportedly attributable to anxiety resolved Declining CT scan at this time. Reassess based on clinical course. test negative. TFTs WNL. UA unrevealing. Supportive care Antiemetics IV fluids Diet as tolerated UDS Positive marijuana. Hyperemesis due to marijuana? Cessation counseling Hypokalemia Replete as needed Monitor magnesium Smoking/vaping Cessation counseling Recent severe menorrhagia Considering above complaints, will consult gynecology. She does not have an appointment with her instructional systems designer until Thanksgiving Pelvic ultrasound Unrevealing gynecology recommends outpatient follow-up They feel this is secondary to control DVT prophylaxis SCDs and ambulation Full code Disposition discharge home Admission HPI Per Admitting Provider 19-year-old female anxiety smoking /Vaping who was referred by [facility] with complaints of severe anxiety. Endorses associated abdominal cramping nausea and vomiting. She states this is normal for her whenever she feels severely anxious and it resolves once her anxiety subsides. She feels moving back to [place] has provoked her anxiety attack. She is declining a CT scan in the ED for this reason. No fevers chills diarrhea blood in stool lightheadedness shortness of breath sick contacts travel or suspicious foods. She was on lexapro in the past and admits to not always being compliant as she felt it did not work very well. Currently Not on any medications aside from hydroxyzine recently prescribed at [facility] but she has not taken this secondary to her nausea and vomiting. Denies SI HI delusions or hallucinations. Denies EtOH or illicit drug use Discharge Exam awake alert NAD SKIN - Without rashes. No meningeal or petechial rash. HEAD - NC/AT. EYES - PERRL with EOMI bilaterally. Sclera anicteric. EARS - No deformities of external structures noted on gross examination bilaterally. NOSE - Midline and without cyanosis. No epistaxis or purulent drainage noted. MOUTH/OROPHARYNX - Without perioral cyanosis. NECK - Neck with FROM. No nuchal rigidity. LUNGS - CTA CARDIAC - RRR ABDOMEN - Abdominal contour normal without pulsations or visible masses. BS normoactive all four quadrants. No tenderness, palpable masses, hepatosplenomegaly, or ascites noted. EXTREMITIES - No clubbing or peripheral cyanosis. +5/5 strength noted in UE/LE bilaterally. NEUROLOGIC - Cranial nerves II through XII grossly intact. PSYCH - alert, oriented and pleasant on exam Discharge Plan Discharge Items Patient Disposition: Home - Self-Care Reason For Visit: ANXIETY Discharge Diagnosis: Nausea vomiting abdominal pain severe anxiety. Menorrhagia Condition on Discharge: Good Activity: Resume your previous activity Non-emergency contact: Primary Care Provider, Specialist, Research Physiologist, Psychiatrist, Therapist and Tig Welder Call non-emergency contact if: you have any medication questions, your symptoms worsen, your pain is not controlled, your pain is worsening, your pain is unusual for you, your pain is concerning for you and you have a fever Follow-up/Referrals: [facility] [address] [Primary Care Provider] - Diet: Regular Addtl Attending Provider Instructions: Follow-up with your primary care doctor, psychiatrist and instructional systems designer within 1 week. Do not hesitate to come back if you develop concerning symptoms. Eat well and hydrate. Work on wellbeing and lifestyle measures such as good sleep, exercise, eating well hydrating, stress management, etc. Avoid marijuana Pending Studies at Discharge: No Visit Report Forms: Smoking Cessation Stand-Alone Forms: My [facility] [place] [employer], Smoking Cessation Medications and DC Order Prescriptions: New hydroxyzine HCl 25 mg Tablet 50 mg PO Q8H PRN (Reason: anxiety) Qty: 30 0RF Discontinued hydroxyzine HCl 25 mg Tablet 25 mg PO DAILY PRN (Reason: Anxiety) Discharge Orders: Discharge Order (Routine); Ordered 03/21/25 Ordered By: Sommer Olivarez Admission Data Admit Date/Time: 03/20/25 14:03 Attending Provider: Sommer Olivarez Admit Provider: Sommer Olivarez Primary Care Provider: [facility] [address] Other Providers: Sommer Olivarez; Amanda Casas; Dinorah Durbin; Tete Pérez; Ely Olivarez; Dee Montoya; Darrell Deutsch; Mounika Maya; Trina Pablo; Destini Cantu; Mac Benavides; Sarah Melo; Thi Diaz; Cris Hancock; Jameson Arroyo; Hali Caraballo; Sarah Sumner; Phil Warren; Emilie Tubbs; Ab Cotter; Clare Powers Hospital Stay Data Consultations 03/20/25 13:33 ED Decision to Admit Stat 03/20/25 14:22 Consult Gynecology Stat 03/20/25 14:46 Consult Psychiatry Routine Diagnostic Imagining Performed 03/20/25 14:22 US pelvic complete Stat 03/20/25 14:24 US transvaginal Stat Pending Results Patient Have Any Pending Studies at Discharge: No Discharge Instructions Given to Patient (Per Discharging Provider) Follow-up with your primary care doctor, psychiatrist and instructional systems designer within 1 week. Do not hesitate to come back if you develop concerning symptoms. Eat well and hydrate. Work on wellbeing and lifestyle measures such as good sleep, exercise, eating well hydrating, stress management, etc. Avoid marijuana Total Time Total Time Spent Total Time Spent (In Minutes): 35 Coding Level of Care Code 05318 INP/OBS DISCH >30 MIN Diagnoses Anxiety F41.9 Nausea & vomiting R11.2
[2025-03-21 14:24] VITALS: PULSE 65
[2025-03-23 15:27] LABS: Marijuana Quant, GCMS Urine 286 ng/mL (<5)
== END 2025-03-21 14:23 | disposition home or self-care (01) ==
LOC: ED 08:59 → 2N 08:59